=== PATIENT | female | born 1965 | race Two or more races ===

== ENCOUNTER 2021-12-30 19:33 | Emergency (ER) | payer OTHER ==
[~2021-12-30] VITALS: Ht 162.6 cm; Wt 56.7 kg
[2021-12-30] MEDS ORDERED: DICLOFENAC SODI75 MG PO (20:25)
== END 2021-12-30 20:41 | disposition home or self-care (01) ==
LOC: ER 19:33
DX: S99.822A Other specified injuries of left foot, initial encounter (principal); X58.XXXA Exposure to other specified factors, initial encounter; Y93.89 Activity, other specified; Y92.89 Other specified places as the place of occurrence of the external cause